=== PATIENT | female | born 1955 | race Asian ===

== ENCOUNTER 2018-02-19 17:49 | Observation (INO) | payer OTHER ==
[~2018-02-19] VITALS: Ht 160 cm; Wt 53.3 kg
[2018-02-19 19:21] LABS: BASOPHIL % 0.5 % (0-2); PLATELET COUNT 133 x10^3mcL (130-400); RED CELL DISTRIBUTION WIDTH 13.9 % (11.5-14.5)
[2018-02-19 19:43] LABS: CALCIUM 8.9 mg/dL (8.5-10.1); CARBON DIOXIDE 30.3 mmol/L (21-32); CHLORIDE SERUM 106 mmol/L (98-107); CREATININE SERUM 0.5 mg/dL (0.6-1.0); GFR1 > 60 mL/min; GLUCOSE SERUM 101 mg/dL (74-106); SODIUM SERUM 140 mmol/L (136-145)
[2018-02-19 19:47] LABS: ALBUMIN 3.7 g/dL (3.4-5.0); ALKALINE PHOSPHATASE 87 U/L (46-116); ALT/SGPT 30 U/L (14-59); AST/SGOT 17 U/L (15-37); BILIRUBIN TOTAL 0.35 mg/dL (0.20-1.00); TOTAL PROTEIN, SERUM 7.6 g/dL (6.4-8.2)
[2018-02-19] MEDS ORDERED: BETIMOL5 M1 OU (20:14)
[2018-02-19] MEDS ORDERED: NOR5 PO (20:14)
[2018-02-19] MEDS ORDERED: SYNTHROID0.05 MG PO (20:15)
[2018-02-19 21:04] VITALS: BP 161/80
[2018-02-19 21:20] LABS: MAGNESIUM 2.5 mg/dL (1.8-2.4); PHOSPHOROUS 3.2 mg/dL (2.5-4.9)
[2018-02-20 04:01] LABS: T3 TOTAL 0.84 ng/mL
[2018-02-20 04:08] LABS: FREE T4 1.15 ng/dL (0.76-1.46); T4(THYROXINE) 9.6 ug/dL (4.7-13.3)
[2018-02-20 04:21] LABS: CHOLESTEROL/HDL RATIO 2.7
[2018-02-20 05:58] VITALS: BP 133/67
[2018-02-20 09:23] VITALS: BP 141/69
[2018-02-20] MEDS ORDERED: LIPI20 PO (11:22)
[2018-02-20 11:55] VITALS: BP 141/69
[2018-02-20 12:05] VITALS: BP 129/68
== END 2018-02-20 14:27 | disposition home or self-care (01) | DRG 73 ==
LOC: ED 17:49 → DU 20:13
PROVIDERS: Emergency Medicine; Family Medicine
DX: G90.9 Disorder of the autonomic nervous system, unspecified (principal); N17.0 Acute kidney failure with tubular necrosis; R20.2 Paresthesia of skin; E83.41 Hypermagnesemia; I10 Essential (primary) hypertension; E78.5 Hyperlipidemia, unspecified; E03.9 Hypothyroidism, unspecified; S13.1 Subluxation and dislocation of cervical vertebrae; S13.161S Dislocation of C5/C6 cervical vertebrae, sequela; V89.2XXS Person injured in unspecified motor-vehicle accident, traffic, sequela
CPT/HCPCS: 83880; 84439; G0378; J3490; J7030; Q0092